=== PATIENT | male | born 1955 | race Caucasian/White ===

== ENCOUNTER 2019-03-12 04:00 | Inpatient (IN) | payer OTHER ==
[~2019-03-12] VITALS: Ht 170.2 cm; Wt 79.4 kg
[~2019-03-12 04:00] MED LIST: ACETAMINOPHEN325 M1 PO; ASPIRIN EC325 M1 PO; CELEXA20 MG PO; LISINOPRIL5 MG PO; MOBIC15 MG PO; NORCO 10-325 T1 EACH PO
[2019-03-12 04:02] VITALS: BP 172/88
[2019-03-12 04:53] LABS: URINE BILIRUBIN NEGATIVE (Negative); URINE BLOOD NEGATIVE (Negative); URINE CLARITY CLEAR; URINE COLOR YELLOW; URINE GLUCOSE-RANDOM* NEGATIVE (Negative); URINE KETONES TRACE (Negative); URINE LEUKOCYTES-REFLEX NEGATIVE (Negative); URINE NITRITE-REFLEX NEGATIVE (Negative); URINE PROTEIN (DIPSTICK) TRACE (Negative); URINE SPECIFIC GRAVITY 1.025 (1.005-1.035)
[2019-03-12 04:58] LABS: ABSOLUTE NEUTROPHILS 5.9 thou/uL (1.4-8.2); BASOPHILS 0.5 % (0.0-2.0); HEMATOCRIT 39.9 % (42.0-52.0); HEMOGLOBIN 13.5 gm/dL (14.0-18.0); LYMPHOCYTES 16.5 % (24.0-44.0); MCH 30.1 pg (26.0-34.0); MCHC 33.7 g/dL (28.0-37.0); MCV 89.1 fL (80.0-100.0); MONOCYTES 8.7 % (1.0-8.0); PLATELET COUNT 359 thou/uL (150-400); POLYS 71.3 % (36.0-66.0); RBC 4.48 mil/uL (4.50-6.00); RDW 13.6 % (10.5-14.5); WBC 8.3 thou/uL (4.0-11.0)
[2019-03-12 05:06] LABS: CALCIUM 8.3 mg/dL (8.5-10.1); CREATININE 0.9 mg/dL (0.7-1.3); POTASSIUM 3.7 mmol/L (3.5-5.1)
[2019-03-12 05:12] LABS: ALBUMIN 3.4 g/dL (3.4-5.0); TOTAL BILIRUBIN 0.3 mg/dL (<0.1-1.0); TOTAL PROTEIN 7.2 g/dL (6.4-8.2)
[2019-03-12 08:31] VITALS: BP 135/68
[2019-03-12 08:39] VITALS: BP 151/80
[2019-03-12 08:57] VITALS: BP 139/73
[2019-03-12 09:45] LABS: AMP/METHAMP POSITIVE (Negative); BARBITURATES Negative (Negative); BENZODIAZEPINES Negative (Negative); COCAINE Negative (Negative); METHADONE Negative (Negative); OPIATES Negative (Negative); PCP Negative (Negative)
[2019-03-12 14:31] VITALS: BP 131/72
--- NOTE | 2019-03-12 19:37 | NUR ---
REceived pt from the ER, pt is evasive when admission questions were asked. Maintained on clear liquid diet and is tolerated thought pt has expressed his increased in hunger. Pt is able to ambulate from bed to toilet with a steady gait. No issue with voiding have been noted, one bowel movement has been noted during the shift ,a pt denies any pain, nausea or vomiting. Expressive aphasia has been noted due to stroke a few years ago. SCD's ok with the pt but to be placed at bed time endorsed to the night nurse. POC followed, no signs or verbvalizatiosn of distress have been noted.
[2019-03-12] MEDS ORDERED: ASPIR 8181 MG PO (20:16)
[2019-03-12 22:00] VITALS: BP 148/67
--- NOTE | 2019-03-13 02:12 | NUR ---
ASSUMED CARE AROUND 1900. AXOX3. POSITIVE HYPERACTIVE BOWEL SOUNDS IN ALL 4 QUADS. TOLERATED CLEAR LIQUIDS GREAT. BABY ASPRIN RESUMED PER PT REQUEST AND PROJECT FINANCE ANALYST ORDER. DENIES AB PAIN AT THIS TIME. NO S/S ACUTE DISTRESS NOTED OR REPORTED AT THIS TIME. WILL CONT TO MONITOR FOR ANY CHANGES IN CONDITION.
[2019-03-13 04:35] VITALS: BP 131/51
[2019-03-13 08:00] VITALS: BP 154/81
[2019-03-13] MEDS ORDERED: REGLAN 5 MG TAB5 MG PO (10:07)
[2019-03-13] MEDS ORDERED: PROTONIX40 M2 PO (10:07)
[2019-03-13] MEDS ORDERED: MIRALAX17 GM PO (10:07)
--- NOTE | 2019-03-13 10:40 | NUR ---
PT ADMITTED RELATED TO [facility]. CM REVIEWED CHART AND SPOKE WITH CARE TEAM. CM MET WITH PT AT BEDSIDE THIS DAY. PT IS A&O X4. CM ROLE INTRODCUED. PT INDICATED HE LIVES IN A HOUSE WITH AN UNRELATED ADULT WITH NO STEPS TO ENTER AND NO HE USES INSIDE. 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 PT INDICATED NO DME OR HH HX. PT INDICATED HE PLANS TO RETURN HOME THIS DAY. PT INDICATED HE WAS DISSATISFIED WITH COURSE OF CARE. PT INDICATED HE HAS TRANSPORTATION. NO OTHER CM INTERVENTION INDICATED. CASE CLOSED.
[2019-03-13 10:45] VITALS: BP 154/81
--- NOTE | 2019-03-13 10:49 | NUR ---
ASSUMED CARE 0700. PATIENT ALERT X4, STATES HE WANTS TO EAT. DR RAMSAY PLACED ORDERS FOR REGULAR DIET AND DC ORDERS. PT REMOVED HIS IV AND DRESSED HIMSELF AND WALKED OUT. NURSE ASKED PT TO SIGN DC PAPERS. PT LEFT WITHOUT Taking DC PAPERS AND PRESCRIPTIONS. PT WALKED OFF UNIT.
== END 2019-03-13 11:00 | disposition home or self-care (01) | DRG 390 ==
LOC: ER 04:00 → EROBS 07:27 → 4W 07:27
PROVIDERS: Emergency Medicine; ADMIT Hospitalist
DX: K56.609 Unspecified intestinal obstruction, unspecified as to partial versus complete obstruction (principal); F17.210 Nicotine dependence, cigarettes, uncomplicated; K31.89 Other diseases of stomach and duodenum; J44.9 Chronic obstructive pulmonary disease, unspecified; Z86.73 Personal history of transient ischemic attack (TIA), and cerebral infarction without residual deficits; Z79.899 Other long term (current) drug therapy
CPT/HCPCS: 10040